=== PATIENT | male | born 1930 | race Caucasian/White ===

== ENCOUNTER → 2016-11-29 | Outpatient (CLI) | payer MEDICARE ==
--- NOTE | 2016-11-29 14:45 | CARDIOVASCULAR REPORT ---
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 433.10 Occlusion/stenosis of carotid artery without cerebral infarction. IMPRESSIONS 1. The bilateral vertebral arteries are patent with normal antegrade flow. 2. Study suggests 20-49% stenosis involving the right internal carotid artery. 3. Study suggests 50-69% stenosis involving the left internal carotid artery. No change from the study of 04-Sep-2015. History: Risk factors: Hypertension. Dyslipidemia. Labs, prior tests, procedures, and surgery: Right endarterectomy. Labs, prior tests, procedures, and surgery: Right endarterectomy. Carotid duplex study. Complete study and Doppler flow study including spectral analysis, color and reno scale imaging. Location: Vascular laboratory. Patient status: Outpatient. Tables: Arterial flow: + +--------+--------+ |Location |V sys |V ed | + +--------+--------+ |Right CCA - proximal|91.1cm/s|11.8cm/s| + +--------+--------+ |Right CCA - distal |95.1cm/s|12.6cm/s| + +--------+--------+ |Right ECA |164cm/s |--------| + +--------+--------+ |Right ICA - proximal|92.7cm/s|14.9cm/s| + +--------+--------+ |Right ICA - mid |106cm/s |21.2cm/s| + +--------+--------+ |Right ICA - distal |119cm/s |22.8cm/s| + +--------+--------+ |Right vertebral |48.7cm/s|--------| + +--------+--------+ |Left CCA - proximal |127cm/s |15.7cm/s| + +--------+--------+ |Left CCA - distal |114cm/s |11.8cm/s| + +--------+--------+ |Left ECA |254cm/s |--------| + +--------+--------+ |Left ICA - proximal |217cm/s |22.6cm/s| + +--------+--------+ |Left ICA - mid |249cm/s |41.5cm/s| + +--------+--------+ |Left ICA - distal |250cm/s |39cm/s | + +--------+--------+ |Left vertebral |37.7cm/s|--------| + +--------+--------+ Velocity ratios: + + + + + + | |Right, V sys|Right, V ed|Left, V sys|Left, V ed| + + + + + + |Max ICA/dist CCA|1.25 |1.81 |2.19 |3.52 | + + + + + + (Report amended ) Electronically signed by: Teddy Márquez [id number]"
== END ==
LOC: RT 14:13
DX: I65.23 Occlusion and stenosis of bilateral carotid arteries (principal)